=== PATIENT | male | born 1960 | race Hispanic/Latino ===

== ENCOUNTER 2017-09-04 16:34 | Emergency (ER) | payer MEDICARE ==
[2017-09-04 19:16] LABS: Basophils # (Auto) 0.1 K/mm3 (0.0-0.1); Basophils % (Auto) 0.7 % (0.0-1.8); Eosinophils # (Auto) 0.2 K/mm3 (0.0-0.4); Eosinophils % (Auto) 1.7 % (0.0-4.3); Hematocrit 46.3 % (35.5-45.6); Hemoglobin 15.4 gm/dl (11.8-15.2); Lymphocytes # (Auto) 3.1 K/mm3 (1.2-5.4); Lymphocytes % (Auto) 32.9 % (13.4-35.0); Mean Corpuscular HGB Conc 33 % (32-34); Mean Corpuscular Hemoglobin 32 pg (28-32); Mean Corpuscular Volume 95 fl (84-94); Monocytes # (Auto) 0.7 K/mm3 (0.0-0.8); Monocytes % (Auto) 7.2 % (0.0-7.3); Platelet Count 129 K/mm3 (140-440); Red Blood Count 4.85 M/mm3 (3.65-5.03); Red Cell Distribution Width 14.5 % (13.2-15.2)
[2017-09-04 19:47] LABS: Alanine Aminotransferase 191 units/L (7-56); Albumin 3.9 g/dL (3.9-5); BUN/Creatinine Ratio 23; Blood Urea Nitrogen 18 mg/dL (9-20); Calcium 9.6 mg/dL (8.4-10.2); Hemolysis Index 8
--- NOTE | 2017-09-05 01:39 | Emergency Department Report ---
<CATY WARE - Last Filed: 09/05/17 11:33> ED Extremity Problem HPI - General Chief complaint: Extremity Problem,Nontraumatic Stated complaint: BACK/LEG PAIN Time Seen by Provider: 09/05/17 00:33 - Related Data Previous Rx's Medication Instructions Recorded Last Taken Type Ibuprofen [Motrin] 600 mg PO Q8H PRN 5 Days #15 tablet 09/05/17 Unknown Rx Allergies Allergy/AdvReac Type Severity Reaction Status Date / Time No Known Allergies Allergy Verified 09/04/17 18:23 ED Review of Systems ROS: Stated complaint: BACK/LEG PAIN Other details as noted in HPI ED Past Medical Hx - Medications Home Medications: Home Medications Medication Instructions Recorded Confirmed Last Taken Type Ibuprofen [Motrin] 600 mg PO Q8H PRN 5 Days #15 tablet 09/05/17 Unknown Rx ED Course Vital Signs 09/04/17 09/05/17 09/05/17 18:23 04:26 06:09 Temperature 98 F 98.2 F Pulse Rate 69 70 70 Respiratory 16 16 17 Rate Blood Pressure 145/99 Blood Pressure 141/90 129/90 [Left] O2 Sat by Pulse 97 97 97 Oximetry 09/05/17 11:59 Temperature Pulse Rate 67 Respiratory 20 Rate Blood Pressure Blood Pressure 140/96 [Left] O2 Sat by Pulse 99 Oximetry ED Medical Decision Making - Lab Data Result diagrams: 09/04/17 19:00 09/04/17 19:00 Critical care attestation.: If time is entered above; I have spent that time in minutes in the direct care of this critically ill patient, excluding procedure time. ED Disposition Clinical Impression: Right leg swelling, Right leg pain, Varicose veins of left leg with edema Disposition: DC-01 TO HOME OR SELFCARE Is pt being admited?: No Does the pt Need Aspirin: No Condition: Stable Instructions: Varicose Veins (ED), Leg Edema (ED), Arthralgia (ED) Additional Instructions: Please follow-up with your primary care physician on 2016 for further follow-up. Follow up vascular doctor for significant varicose veins to lower extremity Prescriptions: Ibuprofen [Motrin] 600 mg PO Q8H PRN 5 Days #15 tablet PRN Reason: Pain Referrals: JOSHUA RAMOS MD [Staff Physician] - 3-5 Days your, primary care physician [Other] - 09/07/17 <JERSON CORTEZ - Last Filed: 09/06/17 07:57> ED Extremity Problem HPI - General Source: patient Mode of arrival: Ambulatory Limitations: No Limitations - History of Present Illness Initial comments: Patient here complaining of right lower extremity swelling and pain that has been going on for years. He said he is having in increasing pain to his right leg and that he has varicose veins that is really bad and his leg has been swollen but reports that his right leg pain is increased and it feels like there is something of the back of his calf. Denies any injury. Pain is 8 out of 10. He reports swelling. Denies any history of blood clots. Patient has a history of hepatitis C. Patient said that he was not outpatient facility and he was sent here by nurse. He said he did not take anything [id number] for pain. Denies any nausea or vomiting. Denies any fever or chills. Denies any shortness of breath or chest pain. MD Complaint: extremity pain, extremity swelling -: year(s) Location: right, lower extremity History of Same: Yes -: Yes arthralgia, No fever, No associated dyspnea, No associated chest pain Radiation: none Severity scale (0 -10): 8 Quality: aching, sharp Consistency: constant Improves with: immobilization, rest Worsens with: weight bearing, walking, exertion, palpation Associated Symptoms: arthralgias. denies: chest pain, shortness of breath, fever, myalgias, rash ED Review of Systems Comment: All other systems reviewed and negative Constitutional: no symptoms reported Respiratory: no symptoms reported Cardiovascular: edema. denies: chest pain, palpitations, dyspnea on exertion, syncope, paroxysmal nocturnal dyspnea Gastrointestinal: denies: abdominal pain, nausea, vomiting, diarrhea, constipation, hematemesis, melena, hematochezia Genitourinary: denies: urgency, dysuria, frequency, hematuria, discharge, testicular pain, testicular mass Musculoskeletal: arthralgia, other (swelling to right lower extremity leg and pain. Reports varicose veins). denies: back pain, joint swelling Neurological: denies: headache, weakness, numbness, paresthesias, confusion, abnormal gait, vertigo ED Past Medical Hx - Past Medical History Previous Medical History?: Yes Additional medical history: hep c - Surgical History Past Surgical History?: Yes Additional Surgical History: gallbladder, hernia - Family History Family history: no significant - Social History Smoking Status: Never Smoker Substance Use Type: None ED Physical Exam - General Limitations: No Limitations General appearance: alert, in no apparent distress - Head Head exam: Present: atraumatic, normocephalic, normal inspection - Eye Eye exam: Present: normal appearance, PERRL, EOMI Pupils: Present: normal accommodation - ENT ENT exam: Present: normal exam, normal orophraynx, mucous membranes moist - Neck Neck exam: Present: normal inspection, full ROM, other. Absent: tenderness, meningismus, lymphadenopathy, thyromegaly - Respiratory Respiratory exam: Present: normal lung sounds bilaterally. Absent: respiratory distress, chest wall tenderness, accessory muscle use (no C-spine tenderness) - Cardiovascular Cardiovascular Exam: Present: regular rate, normal rhythm, normal heart sounds. Absent: systolic murmur, diastolic murmur - GI/Abdominal GI/Abdominal exam: Present: soft, normal bowel sounds. Absent: distended, tenderness, guarding, rebound, rigid, organomegaly, mass, bruit, pulsatile mass , hernia - Extremities Exam Extremities exam: Present: full ROM, tenderness (right leg), normal capillary refill, pedal edema (right leg), calf tenderness, other (patient with full range of motion to all extremities, no neurovascular compromise. +2 pulses in all extremities. Patient will good color, sensation, movement and temperature to all extremities. Full range of motion without any joint or bony tenderness. No laceration or abrasions. Right leg swollen when compared to left leg. Patient with significant varicosity to right leg which he says is chronic.). Absent: normal inspection, joint swelling - Expanded Lower Extremity Exam Right Hip exam: Present: normal inspection, full ROM, pelvic stability. Absent: tenderness, swelling, abrasion, laceration, ecchymosis, deformity, crepidus, dislocation, erythema, external rotation, internal rotation, shortening Upper Leg exam: Present: normal inspection, full ROM. Absent: tenderness, swelling, abrasion, laceration, ecchymosis, deformity, crepidus, dislocation, erythema Knee exam: Present: normal inspection, full ROM, full knee extension. Absent: tenderness, swelling, abrasion, laceration, ecchymosis, deformity, crepidus, dislocation, erythema, effusion, pain w/ pronation/supination, posterior draw sign, pain/laxity with valgus, pain/laxity with varus Lower Leg exam: Present: tenderness, swelling, palpable cord, Chilo's sign. Absent: normal inspection, full ROM, abrasion, laceration, ecchymosis, deformity , crepidus, dislocation, erythema Ankle exam: Present: normal inspection, full ROM. Absent: tenderness, swelling , abrasion, laceration, ecchymosis, deformity, crepidus, dislocation, erythema Foot/Toe exam: Present: normal inspection, full ROM. Absent: tenderness, swelling, abrasion, laceration, ecchymosis, deformity, crepidus, dislocation, erythema, amputation, puncture wound, foreign body, calcaneal tenderness, tenderness at base of 5th metatarsal, nail avulsion, subungual hematoma Neuro vascular tendon exam: Present: no vascular compromise. Absent: pulse deficit, abnormal cap refill, motor deficit, sensory deficit, tendon deficit, extremity cold to touch, pallor, abnormal 2-point discrimination, decreased fine /light touch, foot drop, peroneal nerve deficit, significant pain with passive ROM of distal joint Gait: Positive: observed and normal - Back Exam Back exam: Present: normal inspection, full ROM, other (ambulates without any difficulties). Absent: tenderness, CVA tenderness (R), CVA tenderness (L), muscle spasm, paraspinal tenderness, vertebral tenderness, rash noted - Neurological Exam Neurological exam: Present: alert, normal gait, reflexes normal. Absent: motor sensory deficit - Psychiatric Psychiatric exam: Present: normal affect, normal mood - Skin Skin exam: Present: warm, dry, intact, normal color. Absent: rash ED Course - Reevaluation(s) Reevaluation #1: 09/05/17 04:17 Patient await in right lower extremity Doppler studies to rule out DVT. This was discussed with Dr. Naik. He received Motrin 800 mg by mouth for pain Reevaluation #2: 09/05/17 05:57 Patient is stable at present. He was given Motrin which she said relieved his pain. Labs noted see lab section for detail on lab results. Michael wrap with low platelet of 129, elevated H&H, white blood cell is normal, AST and ALT ALK phosphate, bilirubin and protein is elevated. Patient has a history of hepatitis C. PT/PTT stable Reevaluation #3: 09/05/17 08:40 Patient stable no distress away then venous Doppler studies ED Medical Decision Making - Lab Data Result diagrams: 09/04/17 19:00 09/04/17 19:00 Lab Results 09/04/17 09/04/17 09/04/17 Range/Units 19:00 19:00 19:00 WBC 9.4 (4.5-11.0) K/mm3 RBC 4.85 (3.65-5.03) M/mm3 Hgb 15.4 H (11.8-15.2) gm/dl Hct 46.3 H (35.5-45.6) % MCV 95 H (84-94) fl MCH 32 (28-32) pg MCHC 33 (32-34) % RDW 14.5 (13.2-15.2) % Plt Count 129 L (140-440) K/mm3 Lymph % (Auto) 32.9 (13.4-35.0) % [place] % (Auto) 7.2 (0.0-7.3) % Eos % (Auto) 1.7 (0.0-4.3) % Baso % (Auto) 0.7 (0.0-1.8) % Lymph # 3.1 (1.2-5.4) K/mm3 [place] # 0.7 (0.0-0.8) K/mm3 Eos # 0.2 (0.0-0.4) K/mm3 Baso # 0.1 (0.0-0.1) K/mm3 Seg Neutrophils % 57.5 (40.0-70.0) % Seg Neutrophils # 5.4 (1.8-7.7) K/mm3 D-Dimer 192.75 (0-234) ng/mlDDU Sodium 140 (137-145) mmol/L Potassium 4.9 (3.6-5.0) mmol/L Chloride 99.6 (98-107) mmol/L Carbon Dioxide 25 (22-30) mmol/L Anion Gap 20 mmol/L BUN 18 (9-20) mg/dL Creatinine 0.8 (0.8-1.5) mg/dL Estimated GFR > 60 ml/min BUN/Creatinine Ratio 23 % Glucose 81 (75-100) mg/dL Calcium 9.6 (8.4-10.2) mg/dL Total Bilirubin 1.30 H (0.1-1.2) mg/dL AST 175 H (5-40) units/L ALT 191 H (7-56) units/L Alkaline Phosphatase 298 H (35-129) units/L Total Protein 8.7 H (6.3-8.2) g/dL Albumin 3.9 (3.9-5) g/dL Albumin/Globulin Ratio 0.8 % Lab Results 09/04/17 09/04/17 09/04/17 Range/Units 19:00 19:00 19:00 WBC 9.4 (4.5-11.0) K/mm3 RBC 4.85 (3.65-5.03) M/mm3 Hgb 15.4 H (11.8-15.2) gm/dl Hct 46.3 H (35.5-45.6) % MCV 95 H (84-94) fl MCH 32 (28-32) pg MCHC 33 (32-34) % RDW 14.5 (13.2-15.2) % Plt Count 129 L (140-440) K/mm3 Lymph % (Auto) 32.9 (13.4-35.0) % [place] % (Auto) 7.2 (0.0-7.3) % Eos % (Auto) 1.7 (0.0-4.3) % Baso % (Auto) 0.7 (0.0-1.8) % Lymph # 3.1 (1.2-5.4) K/mm3 [place] # 0.7 (0.0-0.8) K/mm3 Eos # 0.2 (0.0-0.4) K/mm3 Baso # 0.1 (0.0-0.1) K/mm3 Seg Neutrophils % 57.5 (40.0-70.0) % Seg Neutrophils # 5.4 (1.8-7.7) K/mm3 PT (12.2-14.9) Sec. INR (0.87-1.13) APTT (24.2-36.6) Sec. D-Dimer 192.75 (0-234) ng/mlDDU Sodium 140 (137-145) mmol/L Potassium 4.9 (3.6-5.0) mmol/L Chloride 99.6 (98-107) mmol/L Carbon Dioxide 25 (22-30) mmol/L Anion Gap 20 mmol/L BUN 18 (9-20) mg/dL Creatinine 0.8 (0.8-1.5) mg/dL Estimated GFR > 60 ml/min BUN/Creatinine Ratio 23 % Glucose 81 (75-100) mg/dL Calcium 9.6 (8.4-10.2) mg/dL Total Bilirubin 1.30 H (0.1-1.2) mg/dL AST 175 H (5-40) units/L ALT 191 H (7-56) units/L Alkaline Phosphatase 298 H (35-129) units/L Total Protein 8.7 H (6.3-8.2) g/dL Albumin 3.9 (3.9-5) g/dL Albumin/Globulin Ratio 0.8 % 09/05/17 Range/Units 04:27 WBC (4.5-11.0) K/mm3 RBC (3.65-5.03) M/mm3 Hgb (11.8-15.2) gm/dl Hct (35.5-45.6) % MCV (84-94) fl MCH (28-32) pg MCHC (32-34) % RDW (13.2-15.2) % Plt Count (140-440) K/mm3 Lymph % (Auto) (13.4-35.0) % [place] % (Auto) (0.0-7.3) % Eos % (Auto) (0.0-4.3) % Baso % (Auto) (0.0-1.8) % Lymph # (1.2-5.4) K/mm3 [place] # (0.0-0.8) K/mm3 Eos # (0.0-0.4) K/mm3 Baso # (0.0-0.1) K/mm3 Seg Neutrophils % (40.0-70.0) % Seg Neutrophils # (1.8-7.7) K/mm3 PT 15.0 H (12.2-14.9) Sec. INR 1.12 (0.87-1.13) APTT 34.7 (24.2-36.6) Sec. D-Dimer (0-234) ng/mlDDU Sodium (137-145) mmol/L Potassium (3.6-5.0) mmol/L Chloride (98-107) mmol/L Carbon Dioxide (22-30) mmol/L Anion Gap mmol/L BUN (9-20) mg/dL Creatinine (0.8-1.5) mg/dL Estimated GFR ml/min BUN/Creatinine Ratio % Glucose (75-100) mg/dL Calcium (8.4-10.2) mg/dL Total Bilirubin (0.1-1.2) mg/dL AST (5-40) units/L ALT (7-56) units/L Alkaline Phosphatase (35-129) units/L Total Protein (6.3-8.2) g/dL Albumin (3.9-5) g/dL Albumin/Globulin Ratio % - Radiology Data Radiology results: report reviewed VASCULAR LAB PRELIMINARY REPORT RLE VENOUS DOPPLER COMPLETED NO EVIDENCE OF DVT/SVT NOTED IN VESSELS/SEGMENTS VISUALIZED - Medical Decision Making ED course: Report that he came from inpatient treatment facility because nurse saw his leg was swollen with large varicose vein which he said he has been having for years and its generic. He said that his leg which is his right leg is always larger than the left due to severe varicosity. Patient said that he has been seen by a doctor that told him that he has phlebitis and should take aspirin or Motrin. He said this is been going on for years. Patient said he has been having increasing pain in that leg over the last several days and would like to be checked for blood clots. Vascular Doppler ultrasound done of right lower extremity and it reveals no SVT or DVT. Please refer to laboratory section for details on the lab. D-dimer was normal and liver enzymes elevated due to hepatitis C status. Patient discharged home with ibuprofen and to follow vascular who is Dr. Ramos regarding severe varicose veins that is chronic and also follow-up with his primary care physician.
[2017-09-05] MEDS ORDERED: MOTRIN PO ONE (04:16)
[2017-09-05 05:16] LABS: INR 1.12 (0.87-1.13)
[2017-09-05 05:17] LABS: Partial Thromboplastin Time 34.7 Sec. (24.2-36.6)
[2017-09-05 12:00] VITALS: BP 140/96
--- NOTE | 2017-09-06 14:09 | Vascular Lab Report ---
Right Lower Extremity Venous Duplex Study: Reason for Exam: Right calf pain x3 days. Comments on the Right: All veins visualized are freely compressible without evidence of internal echogenicity. Flow is spontaneous and phasic throughout. No evidence of acute or chronic thrombus is seen in any of the vessels visualized. Comments on the Left: A limited duplex study was done of the proximal veins of the left lower extremity. All veins visualized are freely compressible without evidence of internal echogenicity. Flow is spontaneous and phasic throughout. No evidence of acute or chronic thrombus is seen in any of the vessels visualized. Impression: No evidence of acute or chronic deep venous thrombosis in the right lower extremity.
== END 2017-09-05 11:59 | disposition home or self-care (01) ==
LOC: ED 16:34
DX: I83.892 Varicose veins of left lower extremity with other complications (principal); M79.604 Pain in right leg
CPT/HCPCS: 36415; 80053; 85025; 85379; 85610; 85730; 99284

== ENCOUNTER 2017-09-14 17:15 | Emergency (ER) | payer MEDICARE ==
[2017-09-14] MEDS ORDERED: NACL 0.9% 1000 ML 1,000 ML IV ONE (18:33)
[2017-09-14 19:21] LABS: Basophils # (Auto) 0.1 K/mm3 (0.0-0.1); Basophils % (Auto) 0.5 % (0.0-1.8); Eosinophils # (Auto) 0.1 K/mm3 (0.0-0.4); Eosinophils % (Auto) 1.1 % (0.0-4.3); Hematocrit 47.1 % (35.5-45.6); Hemoglobin 15.7 gm/dl (11.8-15.2); Lymphocytes # (Auto) 3.7 K/mm3 (1.2-5.4); Mean Corpuscular HGB Conc 33 % (32-34); Mean Corpuscular Hemoglobin 31 pg (28-32); Mean Corpuscular Volume 94 fl (84-94); Monocytes # (Auto) 1.1 K/mm3 (0.0-0.8); Monocytes % (Auto) 8.5 % (0.0-7.3); Platelet Count 120 K/mm3 (140-440); Red Blood Count 5.02 M/mm3 (3.65-5.03)
[2017-09-14 19:33] LABS: INR 1.06 (0.87-1.13); Partial Thromboplastin Time 34.6 Sec. (24.2-36.6)
[2017-09-14 19:45] LABS: Alanine Aminotransferase 183 units/L (7-56); Albumin 3.6 g/dL (3.9-5); BUN/Creatinine Ratio 30; Blood Urea Nitrogen 21 mg/dL (9-20); Calcium 9.1 mg/dL (8.4-10.2); Hemolysis Index 22; Lipase 140 units/L (13-60)
[2017-09-15 05:31] VITALS: BP 120/76
--- NOTE | 2017-09-15 11:17 | Emergency Department Report ---
ED GI Bleed HPI - General Chief complaint: GI Bleed Stated complaint: ABDOMINAL PAIN Source: patient Mode of arrival: Ambulatory Limitations: No Limitations - History of Present Illness Initial comments: Mr. Kaminski has a history of hepatitis and cirrhosis. No other medical problems. Presents with 1 week of dark black yet formed stool. No evidence of hematochezia or bright red blood. Stool is not tarry. He did use Pepto-Bismol for stomach upset recently. He has left upper mild quadrant pain without radiation. He has nausea. He also has upper back pain shortness of breath. Denies chest pain. Gradual onset of symptoms 1 week ago. Severity scale (0 -10): 8 - Related Data Previous Rx's Medication Instructions Recorded Last Taken Type Ibuprofen [Motrin] 600 mg PO Q8H PRN 5 Days #15 tablet 09/05/17 Unknown Rx Allergies Allergy/AdvReac Type Severity Reaction Status Date / Time No Known Allergies Allergy Verified 09/04/17 18:23 ED Review of Systems ROS: Stated complaint: ABDOMINAL PAIN Other details as noted in HPI Comment: All other systems reviewed and negative Respiratory: cough, shortness of breath Cardiovascular: denies: chest pain ED Past Medical Hx - Past Medical History Additional medical history: hep c, Cirrosis of the liver - Surgical History Additional Surgical History: gallbladder, hernia - Social History Smoking Status: Former Smoker Substance Use Type: None - Medications Home Medications: Home Medications Medication Instructions Recorded Confirmed Last Taken Type Ibuprofen [Motrin] 600 mg PO Q8H PRN 5 Days #15 tablet 09/05/17 Unknown Rx ED Physical Exam - General Limitations: No Limitations General appearance: alert, in no apparent distress - Head Head exam: Present: atraumatic, normocephalic - Eye Eye exam: Present: normal appearance - ENT ENT exam: Present: mucous membranes moist - Neck Neck exam: Present: normal inspection - Respiratory Respiratory exam: Present: normal lung sounds bilaterally. Absent: respiratory distress - Cardiovascular Cardiovascular Exam: Present: regular rate, normal rhythm. Absent: systolic murmur, diastolic murmur, rubs, gallop - GI/Abdominal GI/Abdominal exam: Present: soft, normal bowel sounds. Absent: distended, tenderness, guarding, rebound, rigid - Rectal Rectal exam: Present: deferred, normal rectal tone, heme (-) stool. Absent: heme (+) stool - Extremities Exam Extremities exam: Present: normal inspection - Back Exam Back exam: Present: normal inspection - Neurological Exam Neurological exam: Present: alert, oriented X3, normal gait - Psychiatric Psychiatric exam: Present: normal affect, normal mood - Skin Skin exam: Present: warm, dry, intact, normal color. Absent: rash ED Course Vital Signs 09/14/17 09/15/17 09/15/17 18:29 05:29 11:10 Temperature 98.3 F 98.3 F Pulse Rate 97 H 86 Respiratory 20 18 18 Rate Blood Pressure 160/107 120/76 O2 Sat by Pulse 99 99 98 Oximetry 09/15/17 12:25 Temperature Pulse Rate Respiratory 18 Rate Blood Pressure O2 Sat by Pulse Oximetry ED Medical Decision Making - Lab Data Result diagrams: 09/14/17 18:33 09/14/17 18:33 Laboratory Tests 09/14/17 09/14/17 09/14/17 18:33 18:33 18:33 WBC 12.4 H RBC 5.02 Hgb 15.7 H Hct 47.1 H MCV 94 MCH 31 MCHC 33 RDW 14.0 Plt Count 120 L Lymph % (Auto) 30.0 [place] % (Auto) 8.5 H Eos % (Auto) 1.1 Baso % (Auto) 0.5 Lymph # 3.7 [place] # 1.1 H Eos # 0.1 Baso # 0.1 Seg Neutrophils % 59.9 Seg Neutrophils # 7.4 PT 14.3 INR 1.06 APTT 34.6 Sodium 136 L Potassium 4.9 Chloride 98.7 Carbon Dioxide 23 Anion Gap 19 BUN 21 H Creatinine 0.7 L Estimated GFR > 60 BUN/Creatinine Ratio 30 Glucose 99 Calcium 9.1 Total Bilirubin 1.90 H AST 135 H ALT 183 H Alkaline Phosphatase 221 H Total Protein 8.5 H Albumin 3.6 L Albumin/Globulin Ratio 0.7 Lipase 140 H Blood Type Antibody Screen 09/14/17 18:33 WBC RBC Hgb Hct MCV MCH MCHC RDW Plt Count Lymph % (Auto) [place] % (Auto) Eos % (Auto) Baso % (Auto) Lymph # [place] # Eos # Baso # Seg Neutrophils % Seg Neutrophils # PT INR APTT Sodium Potassium Chloride Carbon Dioxide Anion Gap BUN Creatinine Estimated GFR BUN/Creatinine Ratio Glucose Calcium Total Bilirubin AST ALT Alkaline Phosphatase Total Protein Albumin Albumin/Globulin Ratio Lipase Blood Type B NEGATIVE Antibody Screen Negative - EKG Data 09/15/17 11:17 EKG obtained at 09/14/1907 Normal sinus rhythm rate of 85 bpm left axis deviation no ST elevation normal TN interval normal QT interval no signs of ischemia and normal T-wave morphology - Radiology Data Radiology results: report reviewed - Medical Decision Making Mr. Kaminski presents with dark formed stools. No evidence of GI bleed. No evidence of peritonitis. No evidence of pneumonia. He was given reassurance. dc'd home with supportive instructions, suspect acute viral syndrome Critical care attestation.: If time is entered above; I have spent that time in minutes in the direct care of this critically ill patient, excluding procedure time. ED Disposition Clinical Impression: Abdominal pain, Cough Disposition: DC-01 TO HOME OR SELFCARE Is pt being admited?: No Does the pt Need Aspirin: No Condition: Good Instructions: Abdominal Pain (ED) Referrals: PRIMARY CARE, [Primary Care Provider] - 3-5 Days Forms: Accompanied Note
[2017-09-15] MEDS ORDERED: NORCO 5/325 PO ONE (11:28)
--- NOTE | 2017-09-15 12:08 | XRay Report ---
ROUTINE CHEST, TWO VIEWS: HISTORY: Cough. The trachea, heart, mediastinal contour, lung mack and bony thorax are unremarkable. IMPRESSION: Unremarkable chest x-ray.
--- NOTE | 2017-09-15 12:52 | Cat Scan Report ---
CT ABDOMEN PELVIS WITHOUT CONTRAST: HISTORY: abdominal pain. COMPARISON: None. TECHNIQUE: Helical CT in 1.25mm intervals without IV contrast. Sagittal and coronal reconstructions. FINDINGS: Lung bases: Normal. Liver: Mild surface nodularity of the liver is detected suggesting mild cirrhotic changes. There is an approximate 4.7 cm slightly hyperdense masslike lesion in the anterior left hepatic lobe. The etiology of this is unclear on noncontrast CT. Consider four-phase liver CT with contrast or MR abdomen with and without contrast for full evaluation. Biliary system: Cholecystectomy. No biliary dilatation. Pancreas: Normal. Spleen: Mild splenomegaly measures 13.7 x 6.7 x 15.7 cm. No focal splenic lesion. Kidneys/ureters/bladder: Normal. Adrenal glands: Normal. Aorta: Normal. Intestines: Normal. Appendix: Normal. Pelvic viscera: Normal. Ascites: None. Adenopathy: None. Musculoskeletal: Mild lumbar spondylosis. No suspicious bony lesion or fracture. IMPRESSION: No acute inflammatory process is identified. Subtle cirrhotic changes are identified in the liver. There is a mass like lesion in the anterior left hepatic lobe which is incompletely evaluated on noncontrast CT, see above. A liver mass cannot be excluded. Mild splenomegaly.
== END 2017-09-15 14:03 | disposition home or self-care (01) ==
LOC: ED 17:15
DX: R10.12 Left upper quadrant pain (principal); R05 Cough; Z87.891 Personal history of nicotine dependence; Z86.19 Personal history of other infectious and parasitic diseases
CPT/HCPCS: 36415; 71046; 74176; 80053; 83690; 85025; 85610; 85730; 86850; 86900; 86901; 93005; 93010